=== PATIENT | female | born 1970 | race Two or more races ===

== ENCOUNTER → 2025-02-10 | Outpatient (CLI) | payer MEDICAID, SELFPAY ==
--- NOTE | 2025-02-10 14:15 | XR_ITS ---
Examination: Screening digital mammography, bilateral Computer aided detection 3-D breast Tomosynthesis, bilateral Date and time of exam: February 10, 2025 1403 hours Indication: Screening Technique: Nonmagnified MLO, CC views of the breasts to been obtained, reconstructed from 3-D Tomosynthesis images. R2 computer aided detection program utilized for evaluation of suspicious masses and/or abnormal calcifications. 3-D Tomosynthesis images obtained. Findings: The breasts are heterogeneously dense, which may obscure small masses 8 mm focal asymmetry upper left breast MLO view, posterior depth, 3 cm from the nipple Slight increased radiodensity in the retroareolar region left breast on the MLO view Impression: BI-RADS Category 0: Incomplete: Need additional imaging evaluation Recommend follow-up spot tomographic views upper outer quadrant left breast to assess 8 mm focal asymmetry upper left breast MLO view Recommend spot compression views retroareolar region left breast to assess increased radiodensity in the retroareolar region left breast Recommend bilateral breast sonography to complete the workup
== END | disposition home or self-care (01) ==
DX: Z12.31 Encounter for screening mammogram for malignant neoplasm of breast (principal); N64.89 Other specified disorders of breast
CPT/HCPCS: 77063; 77067

== ENCOUNTER 2025-02-16 13:14 | Emergency (ER) | payer MEDICAID, SELFPAY ==
--- NOTE | 2025-02-16 13:34 | XR_ITS ---
Examination: CT brain head without contrast. 2-D sagittal coronal reconstructions Date and time of exam:February 16, 2025 1459 hours INDICATIONS: Ground-level fall today with injury to the head, head pain CTDI: vol (mGy):48.4 DLP: (mGycm):973 Technique: Multiple CT axial sections of the brain have been obtained, 5 mm slice thickness. Contrast has not been administered. 2-D sagittal, coronal reconstructions have been obtained Low dose protocols were performed. One or more of the following dose reduction techniques were used; automated exposure control, adjustment of the mA and/or KV according to patient size, use of iterative reconstruction technique. Findings: No significant ventricular enlargement. Intra-axial or extra-axial hemorrhage density is not seen. No mass effect or midline shift Basal cisterns are not remarkable. Fourth ventricle is midline. Cranial vault intact. Impression: Negative for acute hemorrhage, mass effect or midline shift
--- NOTE | 2025-02-16 13:34 | XR_ITS ---
Examination: Wrist, right 3 views Technique: Wrist AP, oblique, lateral 3 views Date and time of exam: February 16, 2025 1346 hours INDICATIONS: Patient fell today with into the wrist, wrist pain and deformity FINDINGS: Acute comminuted impacted intra-articular fracture distal radial metaphysis, forearm angulation at the fracture site Carpal bones intact IMPRESSION: Acute comminuted intra-articular fracture distal radial metaphysis
--- NOTE | 2025-02-16 13:34 | XR_ITS ---
Examination: CT maxillofacial, without intravenous contrast. 2-D sagittal reconstructions. 3-D reconstructions. Date and time of exam:February 16, 2025 1459 hours INDICATIONS: Patient fell today with injury to left face, left facial pain CTDI: vol (mGy):17.8 DLP: (mGycm):308 Technique: Multiple axial images of maxillofacial region, 3.0 mm slice thickness. 2-D sagittal and coronal reconstructions. 3-D reconstructions. Low dose protocols were performed. One or more of the following dose reduction techniques were used; automated exposure control, adjustment of the mA and/or KV according to patient size, use of iterative reconstruction technique. Findings: Frontal bone intact Orbital rims intact, acute maxillary sinusitis No nasal bone fracture No depression zygomatic arches Pterygoid plates maxilla and the mandible intact IMPRESSION: No acute facial fracture.
--- NOTE | 2025-02-16 13:35 | PD.EDRME ---
Rapid Medical Screening Exam RME Arrival date/time: 02/16/25 13:14 54-year-old female presents to the emergency department today for complaint of trip and fall today patient noted to have deformity of the left wrist bruising and swelling to left cheek and left side of forehead Chief Complaint: Fall
[2025-02-16 13:36] VITALS: BP 126/80; PULSE 80; RESP 18; TEMP 37.1; O2SAT 97
[2025-02-16] MEDS: HYDROcodone/APAP 5/325 TABLET 1 TAB PO (13:42)
[2025-02-16 15:10] VITALS: BMI 25.8
[2025-02-16 15:11] VITALS: BP 146/85; PULSE 69; RESP 18; TEMP 37; O2SAT 98
[2025-02-16] MEDS: LIDOCAINE HCL 1% 20 ML VIAL INFL (15:47)
[2025-02-16] MEDS: MORPHINE SULF INJ 10 MG/ML VIAL 4 MG IVP (15:47)
--- NOTE | 2025-02-16 15:57 | PD.EDFALL ---
ED Fall Injury RME/HPI General Chief Complaint: Fall Stated Complaint: Fall today left wrist pain, left cheek swollen Time Seen by Provider: 02/16/25 15:24 Arrival date/time: 02/16/25 13:14 Limitations: no limitations RME / HPI RME / HPI Narrative: Patient is a 54-year-old female who is here today after she had a ground-level, mechanical fall at home. She struck the left side of her face and had a FOOSH injury to her left wrist. She denies any loss of consciousness, nausea, vomiting. Has no vision changes. Has no dental injury. She has no neck or back pain. She states her pain is primarily on her left wrist. She has no other acute complaints or concerns. Related Data Allergies Allergy/AdvReac Type Severity Reaction Status Date / Time Penicillins Allergy Verified 02/16/25 13:19 Review of Systems Review of Systems Systems Reviewed: All systems reviewed, normal except as documented ED Exam General Limitations: Present no limitations General appearance: Present alert and in no apparent distress Head Head exam: Present other (There is mild edema superficial to the left zygomatic arch. There is no crepitus or open wounds. No Awan sign.) Expanded Head Exam Head exam physical: Absent raccoon eyes or CSF rhinorrhea Eye Eye exam: Present normal appearance, PERRL and EOMI ENT ENT exam: Present normal exam, normal oropharynx and mucous membranes moist Neck Neck exam: Present normal inspection, full ROM and trachea midline; Absent tenderness Chest Chest inspection: Present normal inspection and symmetric chest wall rise Respiratory Respiratory exam: Present normal lung sounds bilaterally Cardiovascular Cardiovascular exam: Present regular rate, normal rhythm and normal heart sounds Abdominal Exam Abdominal exam: Present soft Extremities Exam Extremities exam: Present tenderness, joint swelling and other (There is edema diffusely at the left wrist. No open wounds.) Back Exam Back exam: Present normal inspection and full ROM Neurological Exam Neurological exam: Present alert and oriented X3 Psychiatric Psychiatric exam: Present normal affect and normal mood Skin Skin exam: Present warm, dry, intact and normal color Course Quality Measures none Orders Category Date Time Status sling [Splint / Immobilizer] STAT Care 02/16/25 13:[address] facial bones wo con Stat Exams 02/16/25 13:[address] head/brain wo con Stat Exams 02/16/25 13:34 Completed XR wrist comp LT min 3V Stat Exams 02/16/25 13:34 Completed HYDROcodone*/APAP 5/325 [Anna 5/325] Med 02/16/25 13:34 Discontinued 1 tab PO X1 ONE Lidocaine 1% 20 ml [Xylocaine 1% 20 ML] Med 02/16/25 15:35 Discontinued 20 ml INFL X1 ONE Morphine Inj Med 02/16/25 15:30 Discontinued 4 mg IVP X1 ONE Vital Signs Vital signs: Vital Signs Temperature 98.7 F 02/16/25 13:36 Pulse Rate 80 02/16/25 13:36 Respiratory Rate 18 02/16/25 13:36 Blood Pressure 126/80 02/16/25 13:36 Pulse Oximetry (%) 97 02/16/25 13:36 Oxygen Delivery Method Room Air 02/16/25 13:36 Fall MDM Narrative MDM Narrative:: Patient is a 54-year-old female who is here today after she had a ground-level, mechanical fall at home. She struck the left side of her face and had a FOOSH injury to her left wrist. She denies any loss of consciousness, nausea, vomiting. Has no vision changes. Has no dental injury. She has no neck or back pain. She states her pain is primarily on her left wrist. She has no other acute complaints or concerns. On exam, patient is nontoxic-appearing. She is in mild distress. She has mild edema superficial to the left zygomatic arch. She has diffuse swelling and tenderness of the left wrist. CT of the head and face are unremarkable. Plain films of the wrist reveal comminuted fracture of the distal left radius with joint involvement. Dr. Villalta with orthopedics was called, unfortunately, there is no answer and no voicemail services. Case discussed with attending ER physician. Hematoma block was performed and patient was given 4 mg of morphine. Her head was placed in a fingertrap. Axial traction was applied prior to splinting and a ulnar gutter splint. Patient data External records reviewed:: None Clinical information provided by:: patient Social determinants that could affect healthcare access:: none Patient has the following chronic illnesses:: n/a How is presenting disease/condition affected by chronic disease/condition?: uneffected by Evaluation data The following diagnostics were reviewed and interpreted by me:: radiology exam(s) Lab and/or radiology exams considered but not ordered:: n/a Interpretation Summary: Comminuted fracture distal left radius Medications / Prescriptions Medications or Prescriptions considered but not ordered:: n/a Medication administrations:: Medication Administration History Discontinued Medications Hydrocodone Bitart/Acetaminophen (Hydrocodone/Apap 5/325 Tablet) 1 tab PO X1 ONE Stop: 02/16/25 13:35 Last Admin: 02/16/25 13:42 Dose: 1 tab Documented By: Lidocaine HCl (Lidocaine Hcl 1% 20 Ml Vial) 20 ml INFL X1 ONE Stop: 02/16/25 15:36 Last Admin: 02/16/25 15:47 Dose: 20 ml Documented By: EF Morphine Sulfate (Morphine Sulf Inj 10 Mg/Ml Vial) 4 mg IVP X1 ONE Stop: 02/16/25 15:31 Last Admin: 02/16/25 15:47 Dose: 4 mg Documented By: EF See above Consultations Consultation(s) initiated? (list below): No Diagnosis Fall Differential Diagnosis: concussion with loss of consciousness and concussion without loss of consciousness Most likely diagnosis given after review of the tests above:: Left wrist fracture Admission Indicated Admission indicated?: not indicated Admission Request Was there a request for admission?: No Disposition Plan Disposition Plan: Discharge Discharge Attestation Discharge Attestation: The patient and all family members were given an opportunity to ask questions and understood the discharge instructions. Discharge instructions specifically effects, indications for sooner follow up or return to the emergency department, and the expected course of current diagnosis. Patient condition: Stable Discharge Plan Plan Patient Disposition: HOME (Self Care) Patient condition on transfer: Stable Prescriptions/Referrals Referrals: Antony Villalta MD [Physician] - In 1 week Problem List Clinical Impression: Fracture of wrist Patient/Caregiver Discharge Instructions Education Materials: ED Fracture, Wrist, General Additional Instructions: - Use the provided splint. - Use Tylenol and ibuprofen together for pain management. - Contact orthopedics to schedule close follow-up appointment. - Please return as needed for any worsening or emergent changes. Print Language: Cameroonian Stand Alone Forms: [employer] Award Info., Patient Portal Info Letter
[2025-02-16 16:52] VITALS: BP 140/71; PULSE 84; RESP 18; O2SAT 98
== END 2025-02-16 16:57 | disposition home or self-care (01) ==
LOC: SERX 16:56
PROVIDERS: Emergency Provider Family Medicine
DX: S52.502A Unspecified fracture of the lower end of left radius, initial encounter for closed fracture (principal); W18.30XA Fall on same level, unspecified, initial encounter
CPT/HCPCS: 29125; 70450; 70486; 73110; 96374; 99283; J2270; J3490; A9270

== ENCOUNTER → 2025-02-17 | Outpatient (CLI) | payer MEDICAID, SELFPAY ==
--- NOTE | 2025-02-17 10:25 | XR_ITS ---
Examination: Bilateral hands, 6 views. Technique: AP, Oblique, Lateral each hand total 6 views Date and time of exam: February 17, 2025 1032 hours INDICATIONS: Right fifth finger pain after injury November 18, 2024 and fell yesterday with injury to the left wrist Findings: Acute comminuted intra-articular impacted fractures distal left radial metaphysis Displaced fracture left ulnar styloid tip No additional fractures involving the hand or right wrist IMPRESSION: Acute impacted comminuted intra-articular fractures distal left radial metaphysis
--- NOTE | 2025-02-17 10:25 | XR_ITS ---
Examination: Bilateral wrists 6 views TECHNIQUE: AP oblique lateral each wrist total 6 views Date and time: 22,025 1032 hours INDICATIONS: Wrist pain after falling yesterday. FINDINGS: Prominent osteopenia Acute comminuted intra-articular fracture distal left radial metaphysis with mild impaction Displaced fracture ulnar styloid tip IMPRESSION: Acute comminuted intra-articular fracture left radial metaphysis with mild impaction
== END | disposition home or self-care (01) ==
LOC: CDIM 09:54
PROVIDERS: PCP Internal Medicine; Referring Provider Nurse Practitioner Gerontology; Visit Provider Nurse Practitioner Gerontology
DX: M25.531 Pain in right wrist (principal); M79.641 Pain in right hand; S52.92XA Unspecified fracture of left forearm, initial encounter for closed fracture; W19.XXXA Unspecified fall, initial encounter
CPT/HCPCS: 73110; 73130

== ENCOUNTER 2025-04-29 09:00 | Outpatient (RCR) | payer MEDICAID, SELFPAY ==
--- NOTE | 2025-04-28 11:47 | PTNOTE_ITS ---
PT OP Initial Eval Patient Information Outpatient Physical Therapy Treatment Date: 04/28/25 Visit Reasons: Left hand surgery Medical Diagnosis: M25.532 M79.642 Treatment Dx #1: L hand weakness Treatment Dx #2: Dec ROM L hand and wrist Start of Care: 04/28/25 Date of Onset: 03/16/25 Smoking Status Smoking Status: Never smoker Initial Assessment Subjective: Pt is 54 yr old telugu speaking female s/p L distal radius FX and ORIF. Pt reports numbness stiffness and occasional hand pain if she moves the hand fast. She is unable to make a full fist or move the wrist much. This limits all ADL's, lifting and HH chores. 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 Pt requires skill ed therapy to meet goals and has fair rehab potential. 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 Ind with HEP 2. Improved digit flexion to make full fist 3. Improved wrist ROM to at least 45 deg flexion and extension 4. Pt will use L hand ADL's and HH chores x30 mins 5. 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 1. Manual therapy ? 2. Therex ? 3. Modalities as indicated, moist heat, ice, estim Frequency and Duration: 2-3x a week for 18 visits plus the evaluation Certification Dates: 04/28/25 to 07/27/25 Procedure Charges OP PT Eval Mod Complex 30 minutes: Yes
--- NOTE | 2025-04-29 09:45 | PT.ODAYNRPT ---
PT Outpatient Daily Note OP Daily Note Outpatient Physical Therapy Treatment Date: 04/29/25 Visit Reasons: Left hand surgery Subjective: Pain with bending the fingers Objective: See F/S for therex MT: PROM into digit flexion x7' Assessment: Scar tissue adhesions limits wrist and digit flexion. Improved PROM into fist to almost touch the palm with digit pads Plan: Continue per POC Length of Time (minutes) of Treatment: 30 Minutes Procedure Charges Therapeutic Exercise 30 minutes: Yes
== END 2025-04-30 23:59 | disposition home or self-care (01) ==
LOC: CPTX 09:00
PROVIDERS: PCP Nurse Practitioner Gerontology; Referring Provider Nurse Practitioner Gerontology; Visit Provider Nurse Practitioner Gerontology
DX: M25.532 Pain in left wrist (principal); R53.1 Weakness; S52.502D Unspecified fracture of the lower end of left radius, subsequent encounter for closed fracture with routine healing; X58.XXXD Exposure to other specified factors, subsequent encounter; I10 Essential (primary) hypertension
CPT/HCPCS: 97110; 97162

== ENCOUNTER → 2025-05-05 | Outpatient (CLI) | payer MEDICAID, SELFPAY ==
--- NOTE | 2025-05-05 13:30 | XR_ITS ---
Examination: Breast ultrasound complete, bilateral Date and time of exam: May 05, 2025, 1416 hours INDICATIONS: Mammogram February 10, 2025 1614 hours 8 mm focal asymmetry upper left breast MLO view Technique: Real-time grayscale ultrasonographic imaging bilateral breasts, including all 4 quadrants as well as nipple retroareolar and axillary regions. Findings: Sonographic images right breast 1:00 cyst 4 x 5 mm 3.1 cm axillary lymph node Sonographic images left breast 12:00 cyst 4 x 4 mm Axillary lymph node 20 mm IMPRESSION: BI-RADS Category 2: Benign findings
--- NOTE | 2025-05-05 14:30 | XR_ITS ---
Examination: Diagnostic digital mammography, unilateral, left Computer aided detection 3-D breast Tomosynthesis, unilateral Date and time of exam: 05/05/2025, 2:34 p.m. Comparisons: February 10, 2025 Indications: Further evaluation of focal asymmetry upper breast seen on prior screening exam. Technique: Nonmagnified MLO, CC views of the left breast have been obtained, reconstructed from 3-D Tomosynthesis images. R2 computer aided detection program utilized for evaluation of suspicious masses and/or abnormal calcifications. 3-D Tomosynthesis images obtained. Technologist: Findings: The breasts are heterogeneously dense, which may obscure small masses. The previously described abnormality does not persist on spot compression views and represents superimposition of normal fibroglandular tissue density. No evidence of abnormal masses or suspicious calcifications. Impression: BI-RADS category 1: Negative findings (within normal) Recommend 1 year follow-up mammogram
== END | disposition home or self-care (01) ==
DX: R92.312 Mammographic fatty tissue density, left breast (principal)
CPT/HCPCS: 76641; 77061; 77065; G0279

== ENCOUNTER 2025-05-26 08:30 | Outpatient (RCR) | payer MEDICAID, SELFPAY ==
--- NOTE | 2025-05-03 10:26 | PT.ODAYNRPT ---
PT Outpatient Daily Note OP Daily Note Outpatient Physical Therapy Treatment Date: 05/03/25 Visit Reasons: left hand fracture Subjective: Pain with bending the fingers Objective: See F/S for therex MT: PROM into digit flexion x7' Assessment: Scar tissue adhesions limits wrist and digit flexion. Improved PROM into fist to almost touch the palm with digit pads Plan: Continue per POC Length of Time (minutes) of Treatment: 30 Minutes Procedure Charges Therapeutic Exercise 30 minutes: Yes
--- NOTE | 2025-05-06 09:12 | PT.ODAYNRPT ---
PT Outpatient Daily Note OP Daily Note Outpatient Physical Therapy Treatment Date: 05/06/25 Visit Reasons: left hand fracture Subjective: Pain with bending the fingers and the wrist Objective: See F/S for therex MT: PROM into wrist extension x7' Assessment: Scar tissue adhesions limits wrist and digit flexion and wrist extension. Improved PROM into fist to almost touch the palm with digit pads Plan: Continue per POC Length of Time (minutes) of Treatment: 30 Minutes Procedure Charges Therapeutic Exercise 30 minutes: Yes
--- NOTE | 2025-05-10 09:46 | PT.ODAYNRPT ---
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 Objective: See F/S for therex MT: PROM into wrist extension x5' Assessment: Scar tissue adhesions limits wrist and digit flexion and wrist extension and flexion. Improved PROM into fist to almost touch the palm with digit pads Plan: Continue per POC Length of Time (minutes) of Treatment: 30 Minutes Procedure Charges Therapeutic Exercise 30 minutes: Yes
--- NOTE | 2025-05-12 09:29 | PT.ODAYNRPT ---
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 Objective: See F/S for therex MT: PROM into wrist extension and digit flexion into fist x5' Assessment: Scar tissue adhesions limits wrist and digit flexion and wrist extension and flexion. Improved PROM into fist to almost touch the palm with digit pads Plan: Continue per POC Length of Time (minutes) of Treatment: 30 Minutes Procedure Charges Therapeutic Exercise 30 minutes: Yes
--- NOTE | 2025-05-17 14:57 | PT.ODAYNRPT ---
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 Objective: See F/S for therex MT: PROM into wrist extension and digit flexion into fist x5' Assessment: Scar tissue adhesions limits wrist and digit flexion and wrist extension and flexion. Improved PROM into fist to almost touch the palm with digit pads but wrist ROM is limited. Plan: Continue per POC Length of Time (minutes) of Treatment: 30 Minutes Procedure Charges Therapeutic Exercise 30 minutes: Yes
--- NOTE | 2025-05-19 09:40 | PT.ODAYNRPT ---
PT Outpatient Daily Note OP Daily Note Outpatient Physical Therapy Treatment Date: 05/19/25 Visit Reasons: left hand fracture Subjective: Pain with bending the fingers and the wrist Objective: See F/S for therex MT: PROM into wrist extension and digit flexion into fist x7' Assessment: Slow progress with goals due to scar tissue adhesions that limit wrist and digit flexion and wrist extension and flexion. Plan: Continue per POC Length of Time (minutes) of Treatment: 30 Minutes Procedure Charges Therapeutic Exercise 30 minutes: Yes
--- NOTE | 2025-05-24 10:27 | PT.ODAYNRPT ---
PT Outpatient Daily Note OP Daily Note Outpatient Physical Therapy Treatment Date: 05/24/25 Visit Reasons: left hand fracture Subjective: Pain with bending the fingers and the wrist. 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 Objective: See F/S for therex MT: PROM into wrist extension and digit flexion into fist x7' Assessment: Slow progress with goals due to scar tissue adhesions that limit wrist and digit flexion and wrist extension and flexion. Plan: Continue per POC Length of Time (minutes) of Treatment: 30 Minutes Procedure Charges Therapeutic Exercise 30 minutes: Yes
--- NOTE | 2025-05-26 09:03 | PT.ODAYNRPT ---
PT Outpatient Daily Note OP Daily Note Outpatient Physical Therapy Treatment Date: 05/26/25 Visit Reasons: left hand fracture Subjective: Pt reports L hand is doing better and is using it more for light activities at home. Objective: Please see flow sheet for ther ex list. Assessment: Performed PROm of digits into flexion, pt c/o pain but minimal guarding. Plan: Continue with poC. Length of Time (minutes) of Treatment: 30 Minutes Procedure Charges Therapeutic Exercise 30 minutes: Yes
== END 2025-05-30 23:59 | disposition home or self-care (01) ==
LOC: CPTX 08:30
PROVIDERS: PCP Nurse Practitioner Gerontology; Referring Provider Nurse Practitioner Gerontology; Visit Provider Nurse Practitioner Gerontology
DX: M25.532 Pain in left wrist (principal); M79.642 Pain in left hand; R53.1 Weakness; S52.502D Unspecified fracture of the lower end of left radius, subsequent encounter for closed fracture with routine healing; X58.XXXD Exposure to other specified factors, subsequent encounter; R20.0 Anesthesia of skin; M25.642 Stiffness of left hand, not elsewhere classified; I10 Essential (primary) hypertension
CPT/HCPCS: 97110

== ENCOUNTER 2025-06-08 10:00 | Outpatient (RCR) | payer MEDICAID, SELFPAY ==
--- NOTE | 2025-05-31 14:47 | PTNOTE_ITS ---
PT Outpatient Daily Note OP Daily Note Outpatient Physical Therapy Treatment Date: 05/31/25 Visit Reasons: Left hand fracture Subjective: Pt reports L hand is doing better, notices she can close her hand more. Objective: Please see flow sheet for ther ex list. 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 Plan: Continue with POC. Length of Time (minutes) of Treatment: 30 Minutes Procedure Charges Therapeutic Exercise 30 minutes: Yes
--- NOTE | 2025-06-02 14:16 | PT.ODAYNRPT ---
PT Outpatient Daily Note OP Daily Note Outpatient Physical Therapy Treatment Date: 06/02/25 Visit Reasons: Left hand fracture Subjective: Pain with bending the fingers and the wrist. Overall better but still stiff in wrist and fingers Objective: See F/S for therex Assessment: Slow progress with goals due to scar tissue adhesions that limit wrist and digit flexion and wrist extension and flexion but better fist AROM. Plan: Continue per POC Length of Time (minutes) of Treatment: 30 Minutes Procedure Charges Therapeutic Exercise 30 minutes: Yes
--- NOTE | 2025-06-08 10:53 | PTNOTE_ITS ---
PT OP Progress/Discharge Note Date of Service: 06/08/25 Progress Note/DC Note Progress Note/Discharge Note: Progress Note Patient Information Visit Reasons: Left hand fracture Service Continue Service or Discharge: Continue Service Status Subjective: Pt reports she is working and doing ADL's with the L hand. Overall better since starting therapy but still stiff in wrist and fingers Objective: Angel Luis compensation and hris analyst strength: R: 38 lbs, L: 17 lbs Wrist ArOM: Flexion: 36 deg Extension: 27 deg Fist AROM: 95% of full TTP: non TTP incision scar Assessment: Pt has attended 12/ Authorized visits with fair progress with goals due to scar tissue adhesions that limit wrist and digit flexion ROM. Pt has improved wrist extension and flexion and better fist AROM. Pt has improved compensation and hris analyst strenth from 5 lbs to 17 lbs today and hasn't met the goal of 30 lbs. Pt has met the goal of using L hand for ADL's and HH chores x30 mins. Pt would benefit from skilled therapy to meet wrist AROM goal of 45 deg and compensation and hris analyst strength goal. Plan: Request additional visits x6 in order to continue per POC and extend POC to 08/27/25 Procedure Charges Therapeutic Exercise 30 minutes: Yes
== END 2025-06-30 23:59 | disposition home or self-care (01) ==
LOC: CPTX 10:00
PROVIDERS: PCP Nurse Practitioner Gerontology; Referring Provider Nurse Practitioner Gerontology; Visit Provider Nurse Practitioner Gerontology
DX: M79.642 Pain in left hand (principal); M25.532 Pain in left wrist; R53.1 Weakness; R20.0 Anesthesia of skin; M25.642 Stiffness of left hand, not elsewhere classified; S52.502D Unspecified fracture of the lower end of left radius, subsequent encounter for closed fracture with routine healing; X58.XXXD Exposure to other specified factors, subsequent encounter; I10 Essential (primary) hypertension
CPT/HCPCS: 97110